=== PATIENT | female | born 2000 | race African-American/Black ===

== ENCOUNTER 2020-08-27 12:45 | Emergency (ER) | payer OTHER ==
[2020-08-27 12:52] VITALS: BP 116/58; PULSE 57; RESP 16; TEMP 98
--- NOTE | 2020-08-27 13:10 | ED ---
Lower Extremity Injury HPI - General Chief Complaint: Extremity Injury, Lower Stated Complaint: R leg injury Time Seen by Provider: 08/27/20 12:55 Source: patient, RN notes reviewed Mode of arrival: wheelchair Limitations: no limitations - History of Present Illness Initial Comments: 20-year-old female presents emergency Department with chief complaint of right ankle injury. Patient states that she injured at basketball. Patient denies any nausea and the patient states her swelling on her ankle. She had multiple ankle sprains in the past. Patient denies any severe injury yesterday during again but states is very painful after. Patient denies any hip states that she's had on-and-off the pain but does not bother her currently. - Related Data Allergies Allergy/AdvReac Type Severity Reaction Status Date / Time No Known Allergies Allergy Verified 08/27/20 12:52 Review of Systems ROS Statement: Those systems with pertinent positive or pertinent negative responses have been documented in the HPI. ROS Other: All systems not noted in ROS Statement are negative. Past Medical History Past Medical History: No Reported History History of Any Multi-Drug Resistant Organisms: None Reported Past Surgical History: No Surgical Hx Reported Past Psychological History: No Psychological Hx Reported Smoking Status: Never smoker Past Alcohol Use History: None Reported Past Drug Use History: None Reported General Exam Limitations: no limitations General appearance: alert, in no apparent distress Head exam: Present: atraumatic, normocephalic, normal inspection Respiratory exam: Present: normal lung sounds bilaterally. Absent: respiratory distress, wheezes, rales, rhonchi, stridor Cardiovascular Exam: Present: regular rate, normal rhythm, normal heart sounds. Absent: systolic murmur, diastolic murmur, rubs, gallop, clicks Extremities exam: Present: other (Right ankle there is moderate swelling, tenderness on the lateral portion, pain with range of motion neurovascular intact no pain proximal or distal forearm range of motion of all joints.) Neurological exam: Present: reflexes normal. Absent: motor sensory deficit Course Vital Signs 08/27/20 12:49 Temperature 98 F Pulse Rate 57 L Respiratory 16 Rate Blood Pressure 116/58 O2 Sat by Pulse 100 Oximetry Medical Decision Making - Medical Decision Making X-ray was reviewed no acute fracture dislocation. Patient was placed in [facility]. Patient will follow-up with orthopedics if no improvement. Disposition Clinical Impression: Right ankle sprain Disposition: HOME SELF-CARE Condition: Stable Instructions (If sedation given, give patient instructions): Ankle Sprain (ED) Additional Instructions: Please return to the Emergency Department if symptoms worsen or any other concerns. Is patient prescribed a controlled substance at d/c from ED?: No Referrals: Nonstaff,Physician [Primary Care Provider] - 1-2 days Miguel Angel Arriaza MD [STAFF PHYSICIAN] - 1-2 days Time of Disposition: 13:26
--- NOTE | 2020-08-27 13:22 | XR ---
EXAMINATION TYPE: XR ankle complete RT DATE OF EXAM: 08/27/2020 CLINICAL HISTORY: Pain after injury yesterday TECHNIQUE: Frontal, lateral and oblique images of the right ankle are obtained. COMPARISON: None. FINDINGS: There is no acute fracture/dislocation evident in the right ankle. The ankle mortise appe ars within normal limits. The overlying soft tissue appears unremarkable. IMPRESSION: There is no acute fracture or dislocation in the right ankle.
== END 2020-08-27 13:52 | disposition home or self-care (01) ==
LOC: EC 12:45
DX: S93.401A Sprain of unspecified ligament of right ankle, initial encounter (principal); Y93.67 Activity, basketball
CPT/HCPCS: 73610; 99283; 29515; L4350